=== PATIENT | female | born 1975 | race Hispanic/Latino ===

== ENCOUNTER 2018-02-28 11:10 | Outpatient (CLI) | payer OTHER ==
--- NOTE | 2018-02-28 13:21 | MMO ---
BILATERAL SCREENING MAMMOGRAM: Date: 02/28/18 HISTORY: Screening. COMPARISON: None. Baseline exam. TECHNIQUE: Bilateral screening CC and MLO mammograms. This patient's mammogram was interpreted with the assistance of computer-aided detection. FINDINGS: There are scattered fibroglandular densities. No suspicious mass, architectural distortion, or microc alcifications. IMPRESSION: BIRADS 1: Negative Continued annual mammographic screening is recommended. POS: [facility]
== END 2018-02-28 11:11 | disposition home or self-care (01) ==
LOC: SCSMAMMO 11:10
PROVIDERS: ATTEND Obstetrics & Gynecology
DX: Z12.31 Encounter for screening mammogram for malignant neoplasm of breast (principal)
CPT/HCPCS: 77067